=== PATIENT | female | born 1990 | race Two or more races ===

== ENCOUNTER 2016-08-20 21:00 | Inpatient (IN) | payer MEDICAID ==
--- NOTE | ~2016-08-20 | FD ---
ADMIT: 08/20/2016 RM/LOC: 220 [facility] MR#: [id number] [id number] [facility] [address] [place] [id number] [address] [place] [address] Final Diagnosis SEX: F AGE: 25 : 1990 ADMISSION DATE: 08/20/2016 DISCHARGE DATE: 08/22/2016 FINAL DIAGNOSIS: Term vaginal delivery. PROCEDURES: Precipitous vaginal delivery - Aryan Thacker MD. Shirin Zapata MD/ [place] JOB #: [id number] CC: Aryan Thacker MD, Attending Physician Aryan Thacker MD, Family Physician
--- NOTE | ~2016-08-20 | HP ---
ADMIT: 08/20/2016 RM/LOC: 220 [facility] MR#: [id number] [id number] [facility] [address] [place], [place] [address] [address] [place] [address] History and Physical SEX: F AGE: 25 : 1990 DATE OF SERVICE: CHIEF COMPLAINT: Contractions. HISTORY OF PRESENT ILLNESS: This is a 25-year-old, 5, para 4 [place] patient with the current intrauterine as reported by her at 38 weeks and 5/7 days with an LORI of 08/29/2016. Apparently, this is from an ultrasound in [facility] at approximately 8 months. The patient states she recently gone to the [facility] about 1-2 weeks ago. She has had absolutely no care in the [facility], had minimal care in [facility] from the sounds of it. The patient presented to the emergency department complaining of contractions, was found to be in labor. Routine new care labs were drawn along with an ultrasound. Ultrasound reviewed showed of possibly 34 weeks given size, normal ANDIE, and otherwise reassuring anatomy. The patient was checked by the nursing personnel and found to be 6 cm dilated and was admitted for labor. PAST MEDICAL HISTORY: Benign. MEDICATIONS: None. ALLERGIES: NO KNOWN DRUG ALLERGIES. FAMILY HISTORY: Noncontributory. SOCIAL HISTORY: The patient does have a significant other, Aaron. No alcohol, drug, or tobacco use. PREVIOUS HISTORY: She has an 8-year-old, a 6-year-old, a 4-year- old, and 2-year-old. Apparently, she has had two vaginal deliveries here at [place] in the past as well. Vaginal deliveries x4 with no complications reported. REVIEW OF SYSTEMS: A 10-point review of systems obtained, per HPI otherwise negative. PHYSICAL EXAMINATION: VITAL SIGNS: Blood pressure 125/96, pulse 67, respirations 16, temperature 97.4. GENERAL: Alert and oriented x3. No acute distress. HEENT: Pupils equal, round, and reactive. Extraocular muscles intact. Throat clear. HEART: Regular. No murmurs. LUNGS: Clear. ABDOMEN: Soft. My initial exam showed her to be with cord at the introitus. EXTREMITIES: Without any edema. LABORATORY DATA: Hemoglobin normal at 12.8. HIV negative. Blood type O positive, antibody negative. Drug abuse screen negative. ADMIT: 08/20/2016 RM/LOC: 220 [facility] MR#: [id number] [address] [id number] [address] [place] [address] History and Physical SEX: F AGE: 25 : 1990 ASSESSMENT: A 25-year-old with; 1. Intrauterine anywhere from 34-38 weeks by today's ultrasound versus reported ultrasound in [facility]. 2. No care. 3. Active labor with spontaneous vaginal delivery/precipitous, now. 4. Group B Streptococcus negative. 5. Will be [facility] citizen. PLAN: We will continue with routine cares. The patient with precipitous delivery seems to be very stable at this time. We will try to get her in touch with resources here in the [place]. Aryan Thacker MD/ [place] JOB #: [id number] CC: Aryan Thacker, Attending Physician Aryan Thacker, Family Physician
[2016-08-23] MEDS ORDERED: LAN-O-SOOTHE7 GM TP (14:04)
[2016-08-23] MEDS ORDERED: MOTRIN-DPS800 MG PO (14:04)
--- NOTE | 2016-08-28 07:52 | OR ---
ADMIT: 08/20/2016 RM/LOC: 220 [facility] MR#: [id number] [address] [place] [place] [place], [place] [address] [address] [place] [address] Operative/Delivery Room Report SEX: F AGE: 25 : 1990 SURGERY DATE: 08/20/2016 SURGEON: Aryan Thacker MD PREOPERATIVE DIAGNOSES: 1. Intrauterine that are anywhere from 34-38 weeks. 2. No care. 3. Active labor. 4. Group B Strep unknown. 5. English citizen. DIAGNOSES: 1. Status post precipitous spontaneous vaginal delivery. 2. Intrauterine that are anywhere from 34-38 weeks. 3. No care. 4. Active labor. 5. Group B Strep unknown. 6. English citizen. PROCEDURE: Precipitous vaginal delivery post removal of intact placenta. FINDINGS: 1. Live-born infant male born at 2319 hours with a weight of 6 pounds and 7 ounces, scores of 9 and 9 at 1 and 5 minutes respectively. 2. Intact placenta with three vessel cord. FLUIDS: Crystalloid. ANESTHESIA: None. ESTIMATED BLOOD LOSS: 350 mL. COMPLICATIONS: None immediate. REASON FOR ADMISSION: Please refer to dictated H and P. Briefly, a 25-year- old, 5, para 4, with an intrauterine at anywhere from 34-38 weeks, presented to the Emergency Department with complaints of contractions. Found to be in active labor and was admitted for expectant management. The patient began to progress bringing the 's vertex to the perineum. By all accounts, nursing states that the patient was quite comfortable. No anesthesia. I was called as the patient still had a rim and a bulging bag and asked to come in. Apparently shortly thereafter of nursing contacting me, I rechecked on the patient and infant was delivering spontaneously. Continuous maternal monitoring was done throughout and was reassuring. Gestational age exam of was at 38 weeks. DESCRIPTION OF PROCEDURE: Upon my arrival to the room shortly after nursing ADMIT: 08/20/2016 RM/LOC: 220 [facility] MR#: [id number] [address] [address] [address] [place] [address] Operative/Delivery Room Report SEX: F AGE: 25 : 1990 personnel called me, it was noted that was in the bed warmer vigorous and crying and noted to be pink. Attention turned to mom who was in the bed and appeared comfortable. Bed was draped in the usual fashion. Cord was noted to be at the vaginal introitus. Cord blood was obtained. Placenta delivered intact in less than 5 minutes. Twenty units of Pitocin was started in IV bag to help firm the uterus. Attention was then turned to the vaginal vault and cervix, which was noted to be free of laceration. Likewise, attention turned to the perineum, also free of laceration. Bimanual massage of the uterus cleared the vaginal vault of all clot and debris. The uterus was noted to be firm. All sponge and needle counts were correct. There were no major complications with delivery other than precipitous delivery. and mother were in stable condition recovering. Aryan Thacker MD/ [place] JOB #: [id number] CC: Aryan Thacker, Attending Physician Aryan Thacker, Family Physician
== END 2016-08-22 17:06 | disposition home or self-care (01) | DRG 775 ==
LOC: BC 21:00 → 2LDRP 21:00
PROVIDERS: ADMIT Family Medicine
DX: O62.3 Precipitate labor (principal); Z23 Encounter for immunization; Z3A.38 38 weeks gestation of pregnancy; Z37.0 Single live birth